=== PATIENT | male | born 1945 | race Caucasian/White ===

== ENCOUNTER 2017-02-15 18:51 | Emergency (ER) | payer OTHER ==
[~2017-02-15] VITALS: Ht 185.4 cm; Wt 121.0 kg
[~2017-02-15 18:51] MED LIST: EFFEXOR; LOW-DOSE ASPIRI81 MG PO; TRAZADONE PO
[2017-02-15 21:23] VITALS: BP 127/66
== END 2017-02-15 21:23 | disposition home or self-care (01) ==
LOC: EME 18:51
PROC: 09C4XZZ Extirpation of Matter from Left External Auditory Canal, External Approach (ICD-10-PCS; principal; 2017-02-15)
DX: T16.2XXA Foreign body in left ear, initial encounter (principal); K21.9 Gastro-esophageal reflux disease without esophagitis; I10 Essential (primary) hypertension; E78.5 Hyperlipidemia, unspecified; Z79.82 Long term (current) use of aspirin
CPT/HCPCS: 99281; 99283